=== PATIENT | female | born 1995 | race African-American/Black ===

== ENCOUNTER 2018-10-25 10:29 | Emergency (ER) | payer SELFPAY ==
[2018-10-25] MEDS ORDERED: Ketorolac Tromethamine 30 MG/ML VIAL ONE (10:35)
== END 2018-10-25 10:48 | disposition home or self-care (01) ==
LOC: ERS 10:29
DX: R51 Headache (principal)
CPT/HCPCS: 96374; J1885

== ENCOUNTER 2022-07-16 01:33 | Emergency (ER) | payer OTHER ==
[2022-07-16] MEDS ORDERED: LORazepam 2 MG/ML SYR.(CARPUJECT) ONE (01:47)
[2022-07-16] MEDS ORDERED: Ketorolac Tromethamine 30 MG/ML VIAL ONE (01:48)
== END 2022-07-16 02:43 | disposition home or self-care (01) ==
LOC: EDBD 02:12 → ERS 02:12
DX: S29.9XXA Unspecified injury of thorax, initial encounter (principal); Y04.0XXA Assault by unarmed brawl or fight, initial encounter
CPT/HCPCS: 71045; 96372; J1885

== ENCOUNTER 2024-06-05 12:44 | Inpatient (IN) | payer BC, OTHER ==
[~2024-06-05 12:44] MED LIST: Iopamidol-370 76% 500 ML MDV (1 ML CHARGE) ONE
[2024-06-05] MEDS ORDERED: Ondansetron ODT 4 MG TAB ONE (12:51)
[2024-06-05 13:51] LABS: #Basophils Less than 0.03 10x3/uL (0.0-0.2); #Eosinophils Less than 0.03 10x3/uL (0.0-0.7); %Basophils 0.1 % (0.0-1.0); %Lymphocytes 11.8 % (21.0-51.0); %Neutrophils 75.5 % (42.0-75.0); Mean Corpuscular HGB CONC 33.3 g/dL (32.0-36.0); Mean Corpuscular Hemoglobin 27.1 pg (27.0-31.0); Mean Corpuscular Volume 81.4 fL (78.0-98.0); Mean Platelet Volume 8.8 fL (7.4-10.4); Platelet Count 230 10x3/uL (130-400); RBC Distribution Width 13.5 % (11.5-14.5); Red Blood Cell (RBC) Count 5.16 mill/uL (4.20-5.40)
[2024-06-05 14:02] LABS: BHCG - Serum Negative (NEGATIVE); Pregs Control Background? CLEAR/WHITE (CLR/WHITE); Pregs Control Bar Appear? YES (CONTROL BAR)
[2024-06-05 14:09] LABS: ALT (SGPT) 19 U/L (8-55); AST (SGOT) 21 U/L (5-34); Albumin 3.9 g/dL (3.5-5.0); Alkaline Phosphatase 67 U/L (40-110); Anion Gap 18 mmol/L (10-20); BUN (Urea Nitrogen) 11 mg/dL (7.0-18.7); Calc. Creatinine Clearance 0 mL/min (70-130); Calcium 9.9 mg/dL (7.8-10.44); Carbon Dioxide 20 mmol/L (22-29); Chloride 99 mmol/L (98-107); Estimated GFR 68; Globulin 4.9 g/dL (2.4-3.5); Glucose 108 mg/dL (70-105); Lipase 10 U/L (8-78); Potassium 3.6 mmol/L (3.5-5.1); Protein, Total 8.8 g/dL (6.0-8.3); Sodium 133 mmol/L (136-145)
[2024-06-05] MEDS ORDERED: Acetaminophen 500 MG TAB ONE (14:33)
[2024-06-05] MEDS ORDERED: Ketorolac Tromethamine 30 MG (1 mL) VIAL ONE (14:38)
[2024-06-05] MEDS ORDERED: Meropenem 1 GM in Sodium Chloride 0.9% 100 ML IVPB SCH (14:45)
[2024-06-05 16:32] LABS: Bacteria/HPF None Seen HPF (None Seen); Bilirubin Negative (Negative); Blood, Urine 2+ (Negative); CAUTI Indications for Culture Dysuria,urgency,freq; Clarity Extra Turbid (Clear); Glucose, Urine (Dipstick) Normal (Negative); Ketone, Urine 20 mg/dL (Negative); Leukocyte 500 Leu/uL (Negative); Nitrite 1+ (Negative); Protein, Urine (Dipstick) 300 mg/dL (Neg-Trace); Squamous Epithelial 0-3 HPF (0-3); Transitional Epithelial 0-3 HPF (None Seen); WBC/HPF Greater than 50 HPF (0-3)
[2024-06-05 16:35] LABS: Specific Gravity, Urine 1.044 (1.002-1.036); Urine Culture Reflex Yes Yes
[2024-06-05] MEDS ORDERED: Acetaminophen 650 MG Suppository PR PRN (16:40)
[2024-06-05] MEDS: Ondansetron ODT 4 MG TAB PO PRN (19:20)
[2024-06-05] MEDS: Sodium Chloride 0.9% 1,000 ML IV SCH (21:01)
[2024-06-05] MEDS: cefTRIAXone\\ROCEPHIN 1 GM in Sodium Chloride 0.9% 100 ML IVPB SCH (23:38)
[2024-06-06 05:13] LABS: Anion Gap 12 mmol/L (10-20); BUN (Urea Nitrogen) 13 mg/dL (7.0-18.7); Calc. Creatinine Clearance 0 mL/min (70-130); Calcium 8.3 mg/dL (7.8-10.44); Carbon Dioxide 22 mmol/L (22-29); Chloride 107 mmol/L (98-107); Estimated GFR 70; Glucose 95 mg/dL (70-105); Potassium 3.3 mmol/L (3.5-5.1); Sodium 138 mmol/L (136-145)
[2024-06-06 05:23] VITALS: BMI 30.8
[2024-06-06] MEDS: Acetaminophen 325 MG TAB PO PRN (09:17)
[2024-06-06] MEDS: Ketorolac Tromethamine 30 MG (1 mL) VIAL IVP PRN ×2 (13:01→18:35)
[2024-06-06 15:10] VITALS: BMI 30.8
[2024-06-06] MEDS: Enoxaparin 40 MG (0.4 mL) SYRINGE SC SCH (20:19)
[2024-06-07 05:29] LABS: Anion Gap 12 mmol/L (10-20); BUN (Urea Nitrogen) 13 mg/dL (7.0-18.7); Calc. Creatinine Clearance 138 mL/min (70-130); Calcium 8.9 mg/dL (7.8-10.44); Carbon Dioxide 23 mmol/L (22-29); Chloride 104 mmol/L (98-107); Estimated GFR 99; Glucose 85 mg/dL (70-105); Potassium 3.2 mmol/L (3.5-5.1); Sodium 136 mmol/L (136-145)
[2024-06-07] MEDS: Ondansetron PF 4 MG/2 ML Vial IVP PRN (09:50)
[2024-06-07] MEDS: Potassium Chloride 20 MEQ TAB PO SCH (11:49)
[2024-06-07] MEDS: Senokot S 8.6-50 MG TAB PO SCH (20:49)
[2024-06-08 04:54] LABS: Anion Gap 15 mmol/L (10-20); BUN (Urea Nitrogen) 9 mg/dL (7.0-18.7); Calc. Creatinine Clearance 137 mL/min (70-130); Calcium 8.9 mg/dL (7.8-10.44); Carbon Dioxide 19 mmol/L (22-29); Chloride 104 mmol/L (98-107); Estimated GFR 98; Glucose 77 mg/dL (70-105); Potassium 3.3 mmol/L (3.5-5.1); Sodium 135 mmol/L (136-145)
[2024-06-08 05:09] LABS: #Basophils Less than 0.03 10x3/uL (0.0-0.2); %Basophils 0.1 % (0.0-1.0); %Eosinophils 0.3 % (0.0-10.0); %Lymphocytes 17.6 % (21.0-51.0); %Monocytes 12.7 % (0.0-10.0); %Neutrophils 68.9 % (42.0-75.0); Hematocrit 33.6 % (36.0-47.0); Hemoglobin 10.9 g/dL (12.0-16.0); Mean Corpuscular HGB CONC 32.4 g/dL (32.0-36.0); Mean Corpuscular Hemoglobin 26.7 pg (27.0-31.0); Mean Corpuscular Volume 82.2 fL (78.0-98.0); Mean Platelet Volume 9.2 fL (7.4-10.4); Platelet Count 219 10x3/uL (130-400); RBC Distribution Width 13.5 % (11.5-14.5); Red Blood Cell (RBC) Count 4.09 mill/uL (4.20-5.40)
[2024-06-08] MEDS: Potassium Chloride 20 MEQ TAB PO SCH (08:31)
[2024-06-08 08:36] VITALS: BP 123/80; TEMP 99
[2024-06-08] MEDS: FLU (Fluarix Triv) TS24-25(6MOS UP)/PF 45 MCG/0.5 ML Syringe IM ONE (11:03)
== END 2024-06-08 11:50 | disposition home or self-care (01) | DRG 872 ==
LOC: ERS 12:44 → MSONC 15:55
PROVIDERS: ADMIT Hospitalist; ATTEND Hospitalist
DX: A41.9 Sepsis, unspecified organism (principal); N10 Acute pyelonephritis; Z98.890 Other specified postprocedural states; E87.6 Hypokalemia
CPT/HCPCS: 36415; 36416; 74177; 80048; 80053; 81001; 81025; 83605; 83690; 84703; 85025; 87040; 87077; 87086; 87186; 96374; 96375; 99284; J0696; J1650; J1885; J2185; J2405; J7030; Q0162; Q9967